=== PATIENT | male | born 1980 | race Caucasian/White ===

== ENCOUNTER 2020-08-15 10:12 | Outpatient (CLI) | payer BC | END 2020-08-15 10:13 | disposition home or self-care (01) | LOC: MADRAD 10:12 | PROVIDERS: ATTEND Family Medicine | DX: M25.532 Pain in left wrist (principal) ==

== ENCOUNTER 2022-02-01 17:07 | Emergency (ER) | payer BC, SELFPAY ==
[2022-02-01] MEDS ORDERED: Cephalexin 500 MG CAP ONE (17:49)
== END 2022-02-01 18:05 | disposition home or self-care (01) ==
LOC: MADERS 17:07
DX: S51.811A Laceration without foreign body of right forearm, initial encounter (principal); F17.210 Nicotine dependence, cigarettes, uncomplicated; X08.8XXA Exposure to other specified smoke, fire and flames, initial encounter
CPT/HCPCS: 99282

== ENCOUNTER 2023-11-06 15:49 | Emergency (ER) | payer SELFPAY ==
[2023-11-06] MEDS ORDERED: Dexamethasone 10 MG/ML VIAL ONE (16:56)
[2023-11-06] MEDS ORDERED: Lidocaine 4% Patch ONE (16:56)
== END 2023-11-06 17:07 | disposition home or self-care (01) ==
LOC: MADERS 15:49
DX: M47.816 Spondylosis without myelopathy or radiculopathy, lumbar region (principal); K21.9 Gastro-esophageal reflux disease without esophagitis; F17.210 Nicotine dependence, cigarettes, uncomplicated
CPT/HCPCS: 72100; 96372; J1100

== ENCOUNTER 2024-02-21 22:51 | Emergency (ER) | payer OTHER, SELFPAY ==
[~2024-02-21 22:51] MED LIST: Iopamidol 370 76% 100 ML VIAL ONE
[2024-02-21] MEDS ORDERED: Acetaminophen 500 MG TAB ONE (23:21)
[2024-02-21] MEDS ORDERED: Sodium Chloride 0.9% 1,000 ML ONE (23:21)
[2024-02-21 23:30] LABS: Prothrombin Time 12.9 sec (12.0-14.7)
[2024-02-21 23:31] LABS: PTT 32.1 sec (22.9-36.1)
[2024-02-21 23:35] LABS: Band 2 % (5-11); Eosinophils 1 % (0-10); Hematocrit 45.3 % (42.0-52.0); Hemoglobin 14.7 g/dL (14.0-18.0); Lymphocytes 25 % (21-51); MDiff Complete? YES; Mean Corpuscular HGB CONC 32.4 g/dL (32.0-36.0); Mean Corpuscular Hemoglobin 29.4 pg (27.0-31.0); Mean Corpuscular Volume 90.8 fl (78.0-98.0); Mean Platelet Volume 10.4 fL (7.4-10.4); Monocytes 8 % (0-10); Neutrophil 64 % (42-75); Platelet Count 286 10x3/uL (130-400); RBC Distribution Width 11.9 % (11.5-14.5); Red Blood Cell (RBC) Count 4.98 mill/uL (4.70-6.10); White Blood Cell (WBC) Count 6.3 10x3/uL (4.8-10.8)
[2024-02-21 23:40] LABS: Acetaminophen Less than 10 mcg/mL (Less than 10); Alcohol 150.8 mg/dL (Less than 10); Lipase 36 U/L (8-78); Salicylate Less than 8.0 mg/dL (Less than 8.0)
[2024-02-21 23:42] LABS: ALT (SGPT) 14 U/L (8-55); AST (SGOT) 19 U/L (5-34); Alkaline Phosphatase 65 U/L (40-110); Anion Gap 17 mmol/L (10-20); BUN (Urea Nitrogen) 11 mg/dL (8.9-20.6); Bilirubin, Total 0.2 mg/dL (0.2-1.2); Calc. Creatinine Clearance 0 mL/min (70-130); Calcium 8.7 mg/dL (7.8-10.44); Carbon Dioxide 18 mmol/L (22-29); Chloride 110 mmol/L (98-107); Estimated GFR 90; Globulin 2.6 g/dL (2.4-3.5); Glucose 119 mg/dL (70-105); Potassium 3.4 mmol/L (3.5-5.1); Protein, Total 6.6 g/dL (6.0-8.3); Sodium 142 mmol/L (136-145)
[2024-02-22] MEDS ORDERED: Potassium Chloride 20 MEQ TAB ONE (00:15)
[2024-02-22 00:36] LABS: Amphetamine Not Detected (NotDetected); Barbiturates Screen Not Detected (NotDetected); Benzodiazepine Screen Not Detected (NotDetected); Cocaine Metabolite Screen Detected (NotDetected); Methadone Not Detected (NotDetected); Methamphetamine Not Detected (NotDetected); Opiate Screen Not Detected (NotDetected); Oxycodone Screen Not Detected (NotDetected); Phencyclidine (PCP) Not Detected (NotDetected); THC/Cannabinoid Screen Not Detected (NotDetected); Tricyclic Screen Not Detected (NotDetected)
== END 2024-02-22 00:29 | disposition home or self-care (01) ==
LOC: MADERS 22:51
DX: S06.0X0A Concussion without loss of consciousness, initial encounter (principal); F10.129 Alcohol abuse with intoxication, unspecified; E87.6 Hypokalemia; I10 Essential (primary) hypertension; F17.210 Nicotine dependence, cigarettes, uncomplicated; V89.2XXA Person injured in unspecified motor-vehicle accident, traffic, initial encounter
CPT/HCPCS: 70450; 71260; 72125; 74177; 80053; 80306; 80307; 83690; 85025; 85610; 85730; 86850; 86900; 86901; 94760; J7030; Q9967